=== PATIENT | male | born 1990 | race Caucasian/White ===

== ENCOUNTER 2022-05-24 22:29 | Emergency (ER) | payer BC, OTHER ==
[~2022-05-24] VITALS: Ht 170.2 cm; Wt 106.0 kg
[2022-05-24 22:47] VITALS: BP 143/96
[2022-05-24] MEDS ORDERED: diphenhydrAMINE 25mg capsule PO ONE (23:05)
[2022-05-24] MEDS ORDERED: naproxen 500mg tablet PO ONE (23:05)
[2022-05-24] MEDS ORDERED: azithromycin 250mg tablet PO ONE (23:05)
[2022-05-24] MEDS ORDERED: AZIT250T2 PO (23:07)
[2022-05-24] MEDS ORDERED: NAPR-56 PO (23:07)
== END 2022-05-24 23:56 | disposition home or self-care (01) ==
LOC: ER 22:29
DX: H66.92 Otitis media, unspecified, left ear (principal); I10 Essential (primary) hypertension; Z79.899 Other long term (current) drug therapy
CPT/HCPCS: 99284; Q0163